=== PATIENT | male | born 1935 | race Caucasian/White ===

== ENCOUNTER 2020-08-15 11:02 | Inpatient (IN) | payer OTHER ==
[~2020-08-15] VITALS: Ht 177.8 cm; Wt 89.1 kg
[2020-08-15 11:57] LABS: Basophils # (auto) 0 10 ^3/uL (0-0.2); Basophils % (auto) 0.2 % (0.0-2.0); Eosinophils # (auto) 0 10 ^3/uL (0-0.8); Eosinophils % (auto) 0.2 % (0.0-7.0); Hematocrit 42.2 % (41.0-53.0); Hemoglobin 14.7 g/dL (13.5-17.5); Lymphocytes # (auto) 2.4 10 ^3/uL (0.4-5.4); Lymphocytes % (auto) 14.3 % (10.0-50.0); Mean Corpuscular Hemoglobin 31.1 pg (28.0-32.0); Mean Corpuscular Hgb Conc. 34.8 g/dL (32.0-36.0); Mean Corpuscular Volume 89.3 fL (80.0-100.0); Monocytes # (auto) 1.3 10 ^3/uL (0-1.3); Monocytes % (auto) 7.6 % (0.0-12.0); Neutrophils # (auto) 12.9 10 ^3/uL (1.6-8.6); Neutrophils % (auto) 77.7 % (37.0-80.0); Platelet Count (auto) 175 10^3/uL (140-450); Red Blood Cells 4.73 10^6/uL (4.5-5.90); Red Cell Distribution Width 13.7 % (11.8-14.3); White Blood Cell 16.6 10^3/uL (4.4-10.8)
[2020-08-15 12:11] LABS: INR 1.06 (0.9-1.15); Partial Thromboplastin Time 25.1 sec (23.0-31.2)
[2020-08-15 12:14] LABS: Albumin 3.3 g/dL (3.4-5.0); Anion Gap 6 (5-15); Blood Urea Nitrogen 27 mg/dL (7-18); Calcium 10.4 mg/dL (8.5-10.1); Carbon Dioxide 24 mmol/L (21-32); Chloride 112 mmol/L (98-107); Magnesium 2.1 mg/dL (1.6-2.6); Potassium 3.4 mmol/L (3.5-5.1); Sodium 142 mmol/L (136-145)
[2020-08-15 12:22] LABS: Alanine Aminotransferase 39 U/L (16-61); Alkaline Phosphatase 61 U/L (45-117); Aspartate Aminotransferase 26 U/L (15-37); BUN/Creatinine Ratio 20.8; Bilirubin, Total 0.5 mg/dL (0.2-1.0); GFR African American 68 mL/min; GFR Non-African American 56 mL/min; Total Protein 6.2 g/dL (6.4-8.2)
[2020-08-15 12:29] LABS: Glucose 44 mg/dL (74-106)
[2020-08-15] MEDS ORDERED: D5W/SOD CHLO 0.9% 1,000 ML IV ONE (12:45)
[2020-08-15] MEDS ORDERED: NITROGLYCERIN 0.4 MG SL TAB SL PRN ×3 (14:45→18:30)
[2020-08-15] MEDS ORDERED: MORPHINE SULF INJ 2 MG/ML SYRINGE 1ML IV PRN ×3 (14:45→18:30)
[2020-08-15 17:29] LABS: Urine Bacteria NONE SEEN /hpf (None Seen); Urine Blood Negative /uL (Negative); Urine Mucus FEW (None Seen); Urine Specific Gravity 1.024 (1.001-1.035); Urine WBC 1 /hpf (0 - 3)
[2020-08-15] MEDS ORDERED: COLC0.6T56 PO (17:37)
[2020-08-15] MEDS ORDERED: TAMS0.4C36 PO (17:37)
[2020-08-15] MEDS ORDERED: INSUINJ2 SC (17:37)
[2020-08-15] MEDS ORDERED: SIMV-13 PO (17:37)
[2020-08-15] MEDS ORDERED: ASPI-498 PO (17:37)
[2020-08-15] MEDS ORDERED: HYDR25TA5 PO (17:37)
[2020-08-15] MEDS ORDERED: ATEN-60 PO (17:37)
[2020-08-15] MEDS ORDERED: NIAC250T26 PO (17:39)
[2020-08-15] MEDS ORDERED: MULT-733 PO (17:39)
[2020-08-15] MEDS ORDERED: CALC-440 PO (17:39)
[2020-08-15] MEDS ORDERED: CYAN100T7 PO (17:39)
[2020-08-15 17:55] VITALS: BP 149/85
[2020-08-15] MEDS ORDERED: POTASSIUM CHLORIDE 20 MEQ in D5W 5% 1,000 ML IV SCH ×2 (18:00→22:00)
[2020-08-15] MEDS ORDERED: ATROPINE SULF 1 MG/10ml SYR IV PRN (18:00)
[2020-08-15] MEDS ORDERED: MAGNESIUM SULFATE 1GM/100ML 100 ML IV ONE (18:00)
[2020-08-15] MEDS ORDERED: DEXTROSE (50%) 50ML SYRG IV PRN (18:15)
[2020-08-15] MEDS ORDERED: ONDANSETRON HCL 4 MG/2 ML VIAL IV PRN (18:30)
[2020-08-15] MEDS ORDERED: ALUM & MAG HYDROX-SIMETH LIQ(MAALOX) 30 ML PO ONE (18:30)
[2020-08-15] MEDS ORDERED: MORPHINE SULFATE 4 MG/ML SYR/VIAL IV PRN (18:30)
[2020-08-15] MEDS ORDERED: LORazepam 0.5 MG TAB PO PRN (18:30)
[2020-08-15] MEDS ORDERED: hydrALAZINE HCL 20 MG/ML VL IV PRN (18:30)
[2020-08-15] MEDS ORDERED: ACETAMINOPHEN 325 MG TAB PO PRN (18:30)
[2020-08-15] MEDS ORDERED: HYDROcodone-ACET 5/325MG TAB PO PRN (18:30)
[2020-08-15] MEDS ORDERED: POTASSIUM CHL 20MEQ/100ML 100 ML IV ONE (19:00)
[2020-08-15 20:00] VITALS: BP 112/60
[2020-08-15 21:11] LABS: Alcohol, Urine < 3.0 mg/dL (0-10); Amphetamine Screen, Urine NEGATIVE (NEGATIVE); Barbiturate Scree,Urine NEGATIVE (NEGATIVE); Benzodiazephine Screen, Urine NEGATIVE (NEGATIVE); Cannabinoid Screen, Urine NEGATIVE (NEGATIVE); Cocaine Screen, Urine NEGATIVE (NEGATIVE); Opiate Scree,Urine NEGATIVE (NEGATIVE); Phencyclidine Screen, Urine NEGATIVE (NEGATIVE)
[2020-08-15 22:00] VITALS: BP 112/60
[2020-08-15] MEDS ORDERED: ENOXAPARIN SOD 40 MG/0.4 ML SYRINGE SC ONE (22:00)
[2020-08-15] MEDS ORDERED: POTASSIUM CHL 20 Meq TABLET PO ONE (22:00)
[2020-08-15] MEDS ORDERED: InsuLIN REG 1unit/0.01ml Soln (100units/ml) SC SCH (22:00)
[2020-08-15] MEDS: ATORVASTATIN 20 MG TAB PO SCH (22:06)
[2020-08-15] MEDS: ACCU-CHEK COMFORT CURVE STRIP VI SCH (22:17)
[2020-08-16 05:00] VITALS: BP 158/79
[2020-08-16] MEDS: ACCU-CHEK COMFORT CURVE STRIP VI SCH ×4 (06:42→21:40)
[2020-08-16] MEDS: InsuLIN REG 1unit/0.01ml Soln (100units/ml) SC SCH ×4 (06:42→21:39)
[2020-08-16 08:32] LABS: INR 1.06 (0.9-1.15); Partial Thromboplastin Time 27.1 sec (23.0-31.2)
[2020-08-16 08:34] LABS: Basophils # (auto) 0 10 ^3/uL (0-0.2); Basophils % (auto) 0.3 % (0.0-2.0); Eosinophils # (auto) 0 10 ^3/uL (0-0.8); Eosinophils % (auto) 0.5 % (0.0-7.0); Hematocrit 42.3 % (41.0-53.0); Hemoglobin 14.7 g/dL (13.5-17.5); Lymphocytes # (auto) 1.9 10 ^3/uL (0.4-5.4); Lymphocytes % (auto) 23.1 % (10.0-50.0); Mean Corpuscular Hemoglobin 30.8 pg (28.0-32.0); Mean Corpuscular Hgb Conc. 34.6 g/dL (32.0-36.0); Mean Corpuscular Volume 88.9 fL (80.0-100.0); Monocytes # (auto) 0.6 10 ^3/uL (0-1.3); Monocytes % (auto) 7.5 % (0.0-12.0); Neutrophils # (auto) 5.8 10 ^3/uL (1.6-8.6); Neutrophils % (auto) 68.6 % (37.0-80.0); Nucleated Red Blood Cells % 0.1 %; Platelet Count (auto) 147 10^3/uL (140-450); Red Blood Cells 4.76 10^6/uL (4.5-5.90); Red Cell Distribution Width 13.4 % (11.8-14.3); White Blood Cell 8.4 10^3/uL (4.4-10.8)
[2020-08-16 08:35] LABS: Potassium 4.2 mmol/L (3.5-5.1)
[2020-08-16 08:45] LABS: Albumin 3.2 g/dL (3.4-5.0); Bilirubin, Total 0.5 mg/dL (0.2-1.0); Calcium 9.8 mg/dL (8.5-10.1); Uric Acid 6.8 mg/dL (3.5-7.2)
[2020-08-16 09:00] VITALS: BP 145/71
[2020-08-16] MEDS: ENOXAPARIN SOD 40 MG/0.4 ML SYRINGE SC SCH (09:25)
[2020-08-16] MEDS: MULTIPLE VITAMINS W/ MINERALS TAB PO SCH (09:25)
[2020-08-16] MEDS: DOCUSATE SOD 100 MG CAP PO SCH (09:25)
[2020-08-16] MEDS: COLCHICINE 0.6 MG CAP PO SCH (09:26)
[2020-08-16] MEDS ORDERED: ASPirin-EC 81 mg tab PO SCH (10:00)
[2020-08-16] MEDS ORDERED: ENOXAPARIN SOD 40 MG/0.4 ML SYRINGE SC SCH (10:00)
[2020-08-16 13:00] VITALS: BP 162/77
[2020-08-16] MEDS ORDERED: DEXTROSE (50%) 50ML SYRG IV PRN (15:45)
[2020-08-16] MEDS ORDERED: LISINOPRIL 20 MG TAB PO ONE (15:45)
[2020-08-16 16:47] VITALS: BP 156/73
[2020-08-16] MEDS: TAMSULOSIN HYDROCHLORIDE 0.4 MG CAP PO SCH (18:47)
[2020-08-16 20:00] VITALS: BP 133/67
[2020-08-16] MEDS: ATORVASTATIN 20 MG TAB PO SCH (21:36)
[2020-08-16 22:00] VITALS: BP 153/67
[2020-08-17] VITALS (7 sets, daily range): BP systolic 130–155; BP diastolic 54–79
[2020-08-17] MEDS: ACCU-CHEK COMFORT CURVE STRIP VI SCH ×4 (06:26→21:27)
[2020-08-17] MEDS: InsuLIN REG 1unit/0.01ml Soln (100units/ml) SC SCH ×4 (06:31→21:28)
[2020-08-17 07:19] LABS: Calcium 9.8 mg/dL (8.5-10.1); Potassium 4.5 mmol/L (3.5-5.1)
[2020-08-17 07:24] LABS: BUN/Creatinine Ratio 15.7
[2020-08-17] MEDS ORDERED: ASPirin-EC 81 mg tab PO SCH (10:00)
[2020-08-17] MEDS ORDERED: LISINOPRIL 20 MG TAB PO SCH (10:00)
[2020-08-17] MEDS: MULTIPLE VITAMINS W/ MINERALS TAB PO SCH (10:14)
[2020-08-17] MEDS: COLCHICINE 0.6 MG CAP PO SCH (10:14)
[2020-08-17] MEDS: DOCUSATE SOD 100 MG CAP PO SCH (10:14)
[2020-08-17] MEDS: ENOXAPARIN SOD 40 MG/0.4 ML SYRINGE SC SCH (10:15)
[2020-08-17] MEDS: hydrALAZINE HCL 25 MG TAB PO SCH ×2 (14:00→21:26)
[2020-08-17] MEDS: TAMSULOSIN HYDROCHLORIDE 0.4 MG CAP PO SCH (18:00)
[2020-08-17] MEDS: ATORVASTATIN 20 MG TAB PO SCH (21:27)
[2020-08-18 05:00] VITALS: BP 140/71
[2020-08-18] MEDS: hydrALAZINE HCL 25 MG TAB PO SCH (06:14)
[2020-08-18] MEDS: ACCU-CHEK COMFORT CURVE STRIP VI SCH (06:14)
[2020-08-18] MEDS: InsuLIN REG 1unit/0.01ml Soln (100units/ml) SC SCH (06:15)
[2020-08-18 08:00] VITALS: BP 126/75
== END 2020-08-18 08:12 | disposition short-term general hospital (02) | DRG 637 ==
LOC: EDBD 11:02 → ER 11:09 → TELE 14:34 → TELE-WESTW 17:55
PROVIDERS: ADMIT Hospitalist; ATTEND Internal Medicine
DX: E11.649 Type 2 diabetes mellitus with hypoglycemia without coma (principal); I50.23 Acute on chronic systolic (congestive) heart failure; R65.10 Systemic inflammatory response syndrome (SIRS) of non-infectious origin without acute organ dysfunction; I11.0 Hypertensive heart disease with heart failure; R00.1 Bradycardia, unspecified; Z20.822 Contact with and (suspected) exposure to COVID-19; I25.10 Atherosclerotic heart disease of native coronary artery without angina pectoris; E83.52 Hypercalcemia; E87.6 Hypokalemia; E66.9 Obesity, unspecified; M10.9 Gout, unspecified; E11.40 Type 2 diabetes mellitus with diabetic neuropathy, unspecified; E88.09 Other disorders of plasma-protein metabolism, not elsewhere classified; E78.5 Hyperlipidemia, unspecified; N40.0 Benign prostatic hyperplasia without lower urinary tract symptoms; Z79.4 Long term (current) use of insulin; I25.2 Old myocardial infarction; Z95.1 Presence of aortocoronary bypass graft; Z79.899 Other long term (current) drug therapy; Z68.28 Body mass index [BMI] 28.0-28.9, adult
CPT/HCPCS: 36415; 71045; 80048; 80053; 80061; 80307; 81001; 82306; 82728; 82962; 83036; 83735; 83880; 83970; 84100; 84443; 84484; 84550; 85025; 85610; 85730; 87040; 87086; 87426; 93005; 93306; 96360; G0378; J1815; J7042